=== PATIENT | female | born 1995 | race Caucasian/White ===

== ENCOUNTER → 2020-07-06 14:40 | Outpatient (BNVA) | payer BC, SELFPAY | PROVIDERS: Family Provider Pediatrics Adolescent Medicine; PCP Pediatrics Adolescent Medicine; Visit Provider Obstetrics & Gynecology | DX: Z11.3 Encounter for screening for infections with a predominantly sexual mode of transmission (principal); Z12.4 Encounter for screening for malignant neoplasm of cervix | CPT/HCPCS: 87491; 87591; 88175 ==